=== PATIENT | female | born 1985 | race Caucasian/White ===

== ENCOUNTER 2018-04-30 05:40 | Inpatient (IN) | payer MEDICAID ==
[2018-04-30] MEDS ORDERED: LACTATED RINGER'S 1,000 ML IV (05:57)
[2018-04-30] MEDS ORDERED: OXYTOCIN 30 UNITS/LR 500 ML IV ×3 (06:00→17:00)
[2018-04-30] MEDS ORDERED: METHYLERGONOVINE 0.2 MG INJ IM ×2 (06:00→17:00)
[2018-04-30] MEDS ORDERED: MISOPROSTOL 200 MCG TAB PR ×2 (06:00→17:00)
[2018-04-30] MEDS ORDERED: BUTORPHANOL 2 MG INJ IV (06:00)
[2018-04-30] MEDS ORDERED: CARBOPROST 250 MCG INJ IM ×2 (06:00→17:00)
[2018-04-30] MEDS: LACTATED RINGER'S 1,000 ML IV ×2 (06:10→14:04)
[2018-04-30 06:39] LABS: ADD MAN DIFF? NO
[2018-04-30 06:58] LABS: BASOPHILS % 0.2 % (0.0-2.0); EOSINOPHILS # 0.1 10^3/ul (0.0-0.5); HEMATOCRIT 36.4 % (37.0-47.0); HEMOGLOBIN 12.7 g/dl (12.0-16.0); LYMPHOCYTES # 2.2 10^3/ul (0.8-2.9); LYMPHOCYTES % 23.1 % (15.0-51.0); MEAN CORPUSCULAR HEMOGLOBIN 32.8 pg (29.0-33.0); MEAN CORPUSCULAR HGB CONC 34.9 g/dl (32.0-37.0); MEAN CORPUSCULAR VOLUME 94.1 fl (82.0-101.0); MEAN PLATELET VOLUME 12.8 fl (7.4-10.4); MONOCYTE # 0.8 10^3/ul (0.3-0.9); NEUTROPHIL # 6.3 10^3/ul (1.6-7.5); NEUTROPHILS % 66.9 % (39.0-77.0); PLATELET COUNT 131 10^3/UL (140-415); RED BLOOD COUNT 3.87 10^6/ul (4.20-5.40); RED CELL DISTRIBUTION WIDTH 13.2 % (11.5-14.5)
[2018-04-30 06:58] LABS: WHITE BLOOD COUNT 9.4 10^3/ul (4.8-10.8)
[2018-04-30 07:14] LABS: INR 0.96; PROTIME 12.9 Sec (11.9-14.9)
[2018-04-30 07:41] LABS: HEPATITIS B SURFACE ANTIGEN NEGATIVE (NEGATIVE)
[2018-04-30] MEDS: OXYTOCIN 30 UNITS/LR 500 ML IV ×3 (07:50→16:42)
[2018-04-30 14:58] LABS: RAPID PLASMA REAGIN NONREACTIVE (NR)
[2018-04-30] MEDS: IBUPROFEN 600 MG TAB PO (15:02)
[2018-04-30] MEDS: LIDOCAINE 1% (MPF) 30 ML INJ INJ (15:04)
[2018-04-30] MEDS ORDERED: MAGNESIUM HYDROXIDE 30ML CUP PO (17:00)
[2018-04-30] MEDS ORDERED: ZOLPIDEM 5 MG TAB PO (17:00)
[2018-04-30] MEDS ORDERED: ACETAMINOPHEN 325 MG TAB PO (17:00)
[2018-04-30] MEDS ORDERED: DIPHENHYDRAMINE 25 MG CAP PO (17:00)
[2018-04-30] MEDS ORDERED: SENNA/DOCUSATE NA (8.6MG/50MG) TAB PO (17:00)
[2018-04-30] MEDS ORDERED: HYDROCODONE/APAP (5/325) TAB PO (17:00)
[2018-04-30] MEDS: BENZOCAINE 20% 56 ML SPRAY TOP (18:36)
[2018-04-30] MEDS: LANOLIN 7 GM TUBE TOP (18:37)
[2018-04-30] MEDS: WITCH HAZEL/GLYCERIN PAD PR (18:37)
[2018-04-30] MEDS: IBUPROFEN 800 MG TAB PO ×2 (18:37→23:35)
[2018-04-30] MEDS: LACTATED RINGER'S 1,000 ML IV* (22:17)
[2018-05-01] MEDS: LACTATED RINGER'S 1,000 ML IV* ×2 (00:42→08:42)
[2018-05-01] MEDS: IBUPROFEN 800 MG TAB PO ×3 (05:51→18:16)
[2018-05-01 09:13] LABS: ADD MAN DIFF? NO
[2018-05-01 09:18] LABS: BASOPHILS % 0.2 % (0.0-2.0); EOSINOPHILS % 0.4 % (0.0-7.0); HEMATOCRIT 29.3 % (37.0-47.0); HEMOGLOBIN 10.1 g/dl (12.0-16.0); LYMPHOCYTES # 1.3 10^3/ul (0.8-2.9); LYMPHOCYTES % 12.8 % (15.0-51.0); MEAN CORPUSCULAR HEMOGLOBIN 32.4 pg (29.0-33.0); MEAN CORPUSCULAR HGB CONC 34.5 g/dl (32.0-37.0); MEAN CORPUSCULAR VOLUME 93.9 fl (82.0-101.0); MEAN PLATELET VOLUME 12.2 fl (7.4-10.4); MONOCYTE # 0.6 10^3/ul (0.3-0.9); MONOCYTES % 5.5 % (0.0-11.0); NEUTROPHILS % 80.6 % (39.0-77.0); PLATELET COUNT 107 10^3/UL (140-415); RED BLOOD COUNT 3.12 10^6/ul (4.20-5.40); RED CELL DISTRIBUTION WIDTH 13.2 % (11.5-14.5)
[2018-05-02] MEDS: IBUPROFEN 800 MG TAB PO ×3 (00:16→12:36)
[2018-05-02] MEDS: VARICELLA VACCINE LIVE/PF 1,350 UNIT/0.5 ML ML SC* (09:00)
[2018-05-02] MEDS: MEASLES,MUMPS,RUBELLA VACCINE INJ SC* (09:00)
[2018-05-02] MEDS: DIPHTH/TET/ACEL PERTUSS (ADULT) 0.5 ML VIAL IM* (14:30)
== END 2018-05-02 16:44 | disposition home or self-care (01) | DRG 775 ==
LOC: L-D 05:40 → PP1 16:40
PROVIDERS: Obstetrics & Gynecology
PROC: 10E0XZZ Delivery of Products of Conception, External Approach (ICD-10-PCS; principal; 2018-04-30 06:00)
PROC: 0HQ9XZZ Repair Perineum Skin, External Approach (ICD-10-PCS; 2018-04-30 06:00)
PROC: 3E033VJ Introduction of Other Hormone into Peripheral Vein, Percutaneous Approach (ICD-10-PCS; 2018-04-30 06:00)
DX: O48.0 Post-term pregnancy (principal); Z3A.40 40 weeks gestation of pregnancy; O70.0 First degree perineal laceration during delivery; Z37.0 Single live birth
CPT/HCPCS: 76815; 85025; 85610; 85730; 86592; 86850; 86900; 86901; 87340